=== PATIENT | male | born 1970 | race Caucasian/White ===

== ENCOUNTER 2016-05-20 10:18 | Emergency (ER) | payer SELFPAY ==
[~2016-05-20] VITALS: Ht 175.3 cm; Wt 78.0 kg
[2016-05-20 10:20] VITALS: BP 137/86; PULSE 78; RESP 16; TEMP 97.6; O2SAT 99
[2016-05-20] MEDS ORDERED: CEPH-460 PO (11:25)
[2016-05-20] MEDS ORDERED: [UNRECOGNIZED DRUG - CODE] TOPICAL (11:25)
--- NOTE | 2016-05-20 11:27 | PD ---
HPI Chief Complaint: Skin Problem Time Seen by Provider: 11:25 Travel History International Travel<30 days: No Contact w/Intl Traveler<30days: No Traveled to known affect area: No History of Present Illness HPI 46-year-old male presents to the emergency department for evaluation of pruritic rash to bilateral feet. Patient states that he has had a rash to the bottom of both his feet for the past several months. States that he tried topical Lotrimin for 2 weeks without improvement of symptoms. States that he does pick at it and scratch. He denies any fever, chills, swelling, discharge or drainage. No other complaints. No other areas with rash. Does not have a PCP. PFSH Past Medical History Medical History: Denies Significant Hx Diminished Hearing: No Immunizations Current: No Social History Alcohol Use: Yes (6 pk beer daily) Tobacco Use: Yes (1/2 ppd) Substance Use: No Allergies-Medications (Allergen,Severity, Reaction): Coded Allergies: No Known Allergies (Verified , 05/20/16) Reported Meds & Prescriptions Reported Meds & Active Scripts Active Keflex (Cephalexin) 500 Mg Cap 500 Mg PO Q8H 7 Days Alevazol Topical (Clotrimazole Topical) 1% Oint 1 Applic TOPICAL BID 14 Days Review of Systems Except as stated in HPI: all other systems reviewed are Neg Physical Exam Narrative GENERAL: Well-nourished and well-developed pleasant patient in no acute distress who is nontoxic appearing. SKIN: Warm and dry. Dry scaling skin to plantar aspects of feet bilaterally. There is some erythema of the top of the foot but no warmth or swelling. No discharge or drainage. HEAD: Normocephalic and atraumatic. EYES: No injection, drainage, or hyphema noted. PERRLA. EOMI. ENT: No nasal drainage noted. Oropharynx is clear. NECK: Supple and the trachea is midline. CARDIOVASCULAR: Regular rate and rhythm. RESPIRATORY: Breath sounds are equal bilaterally with no accessory muscle use, wheezing, rhonchi, or crackles. MUSCULOSKELETAL: No obvious deformities, swelling, cyanosis, or ecchymosis is present throughout the upper and lower extremities. NEUROLOGICAL: Awake, alert, and oriented. Normal speech and gait. Cranial nerves are grossly intact. Data Data Last Documented VS Vital Signs Date Time Temp Pulse Resp B/P Pulse Ox O2 Delivery O2 Flow Rate FiO2 05/20/16 10:20 97.6 78 16 137/86 99 Room Air MDM Medical Decision Making Medical Screen Exam Complete: Yes Emergency Medical Condition: Yes Differential Diagnosis Tinea pedis versus dermatitis versus eczema Narrative Course 46-year-old male presents to the emergency department for evaluation of rash to bilateral plantar aspects of feet for several months. Patient is afebrile, vital signs are stable. He has what appears to be a hyperkeratotic tinea pedis. We'll prescribe him some antifungal ointment and Keflex to cover for any bacterial component. Discussed supportive care. Advised to follow-up with a mogul operator. Patient verbalizes understanding and agreement with treatment plan. Diagnosis Primary Impression: Tinea pedis of both feet Referrals: [facility] Final Inspector Patient Instructions: General Instructions, Tinea Pedis (ED) Additional Instructions: Apply ointment as prescribed. Use [id number]-kajmpen antifungal powder on stools. Wear non occlusive shoes. Take medications as prescribed with food and a full glass of water. Follow-up with your Movement Assembly Final Inspector. Return to the ED for any acute worsening of symptoms. Med/Other Pt SpecificInfo: Prescription(s) given Scripts Cephalexin (Keflex)500 Mg Fin657 Mg PO Q8H 7 Days Ref 0 Prov:Carly Malave MD 05/20/16 Clotrimazole Topical (Alevazol Topical)1% Oint1 Applic TOPICAL BID 14 Days Ref 0 Prov:Carly Malave MD 05/20/16 Disposition: 01 DISCHARGE HOME Condition: Stable Rekha Choudhury May 20, 2016 11:27
== END 2016-05-20 11:43 | disposition home or self-care (01) ==
LOC: NEPB 10:18
DX: B35.3 Tinea pedis (principal); F17.200 Nicotine dependence, unspecified, uncomplicated
CPT/HCPCS: 99282

== ENCOUNTER 2017-05-27 02:32 | Emergency (ER) | payer SELFPAY ==
[~2017-05-27] VITALS: Ht 177.8 cm; Wt 75.0 kg
[~2017-05-27 02:32] MED LIST: CEPH-460 PO; [UNRECOGNIZED DRUG - CODE] TOPICAL
[2017-05-27 02:36] VITALS: BP 141/92; PULSE 90; RESP 18; TEMP 97.6; O2SAT 98
[2017-05-27] MEDS ORDERED: AMOX875T PO (04:37)
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
[2017-05-27 04:45] VITALS: BP 143/81; PULSE 78; RESP 16; O2SAT 99
[2017-05-27] MEDS ORDERED: AMOXICILLIN 875 MG TAB PO ONE (04:45)
[2017-05-27] MEDS ORDERED: PERC5TAB12 PO (05:07)
== END 2017-05-27 05:13 | disposition home or self-care (01) ==
LOC: PHED 02:32
DX: S01.511A Laceration without foreign body of lip, initial encounter (principal); F17.210 Nicotine dependence, cigarettes, uncomplicated; F10.129 Alcohol abuse with intoxication, unspecified
CPT/HCPCS: 12014